=== PATIENT | female | born 1955 | race Caucasian/White ===

== ENCOUNTER 2016-08-29 13:18 | Inpatient (IN) | payer MEDICAID, OTHER ==
[~2016-08-29] VITALS: Ht 175.3 cm; Wt 72.2 kg
[~2016-08-29 13:18] MED LIST: ADV250 IH; BISO5TAB26 PO; CALC-590 PO; CLON2 PO; DIPH-654 PO; FAMO-136 PO; FLUD.1 PO; FLUO40CA7 PO; FLUR30CA13 PO; GEMF600T3 PO; HYDR-4031 PO; LEVAHFA IH; MOME17N NS; MULT1TAB70 PO; SUMA50TA PO; TIOT185 IH
[2016-08-29] MEDS ORDERED: [UNRECOGNIZED DRUG - OTHER] PO (13:36)
[2016-08-29] MEDS ORDERED: RISP4 PO (13:36)
[2016-08-29] MEDS ORDERED: FERR-89 PO (13:36)
[2016-08-29] MEDS ORDERED: OXYB5XL PO (13:36)
[2016-08-29] MEDS ORDERED: MOME13HF2 IH (13:36)
[2016-08-29] MEDS ORDERED: TRAZ150 PO (13:36)
[2016-08-29] MEDS ORDERED: PANTOPRAZOLE SODIUM 80 MG in SODIUM CHLORIDE 0.9% 50 ML IV ONE (13:45)
[2016-08-29 14:06] LABS: ABG BASE EXCESS -4.1 mmol/L (-2.0-3.0); ABG HCO3 20.8 mmol/L (22.0-26.0); ABG OXYHEMOGLOBIN 89.9 % (94.0-100.0); ABG PCO2 50 mmHg (35-45); ALLEN TEST, BLOOD GAS Positive; TEMPERATURE, FAHRENHEIT, BG 98.6 FAHREN (96.0-98.6)
[2016-08-29] MEDS: PANTOPRAZOLE SODIUM 80 MG in SODIUM CHLORIDE 0.9% 500 ML IV SCH ×2 (14:08→23:45)
[2016-08-29 14:25] LABS: BASOPHILS # (AUTO) 0.01 K/uL (0.00-0.20); BASOPHILS % (AUTO) 0.1 % (0.0-2.0); EOSINOPHILS # (AUTO) 0.01 K/uL (0.00-0.70); EOSINOPHILS % (AUTO) 0.05 % (1.0-6.0); HEMATOCRIT 33.4 % (36-46); HEMOGLOBIN 11.4 g/dL (12.0-16.0); LYMPHOCYTES # (AUTO) 0.5 K/uL (1.0-4.8); LYMPHOCYTES % (AUTO) 5.2 % (22.0-44.0); MEAN CORPUSCULAR HGB CONC 34.1 G/dL (31.0-37.0); MEAN CORPUSCULAR VOLUME 91 fL (80-100); MONOCYTES # (AUTO) 0.3 K/uL (0.1-1.0); NEUTROPHILS # (AUTO) 9.1 K/uL (1.8-7.7); NEUTROPHILS % (AUTO) 91.7 % (40.0-70.0); PLATELET COUNT (AUTO) 243 K/uL (150-450); RED BLOOD CELL COUNT(AUTO) 3.66 MIL/uL (4.00-5.20); RED CELL DISTRIBUTION WIDTH 12.6 % (11.5-14.5); WHITE BLOOD COUNT (AUTO) 9.9 K/uL (4.5-11.0)
[2016-08-29] MEDS ORDERED: SODIUM CHLORIDE 0.9% 1,000 ML IV ONE (14:30)
[2016-08-29 14:37] LABS: INR 1.8 (0.9-1.1); PROTHROMBIN TIME 18.9 SEC (9.4-11.6)
[2016-08-29 14:44] LABS: APPEARANCE,URINE CLOUDY (CLEAR); GLUCOSE, URINE (UA) NEGATIVE (NEGATIVE); KETONES,URINE 15 mg/dL (NEGATIVE); LEUKOCYTE ESTERASE ,URINE NEGATIVE (NEGATIVE); OCCULT BLOOD,URINE TRACE (NEGATIVE); PH,URINE 7.5 (5.0-8.0); PROTEIN,URINE NEGATIVE (NEGATIVE)
[2016-08-29 14:44] LABS: CALCIUM, TOTAL 9.5 mg/dL (8.8-10.5); CREATININE 1.29 mg/dL (0.60-1.30); POTASSIUM 4.8 mmol/L (3.5-5.1)
[2016-08-29 14:45] LABS: ADD UA MICROSCOPIC YES
[2016-08-29 14:49] LABS: AMORPHOUS SEDIMENT,UR Moderate /LPF (None Seen); RBC,URINE 0-2 /HPF (0-2); WBC,URINE 0-2 /HPF (0-5)
[2016-08-29] MEDS ORDERED: TOBRAMYCIN SULFATE 80 MG in DEXTROSE 5%-WATER 50 ML IV ONE (15:00)
[2016-08-29] MEDS ORDERED: CEFTAROLINE 600 MG/D5W 250 ML IV ONE (15:00)
[2016-08-29 15:09] LABS: ALBUMIN 2.9 g/dL (3.4-5.0); BILIRUBIN,TOTAL 0.6 mg/dL (0.1-1.0); CREATINE KINASE MB 20.8 ng/mL (0-5)
[2016-08-29] MEDS ORDERED: SODIUM BICARBONATE 150 MEQ in SODIUM CHLORIDE 0.9% 1,000 ML IV ONE (15:45)
[2016-08-29] MEDS ORDERED: TEMA15CA PO (15:50)
[2016-08-29] MEDS ORDERED: LAMO100 PO (15:50)
[2016-08-29] MEDS ORDERED: BREX3TAB PO (15:50)
[2016-08-29] MEDS ORDERED: DIAZ10 PO (15:50)
[2016-08-29] MEDS ORDERED: DSS100 PO (15:50)
[2016-08-29] MEDS ORDERED: VENL-68 PO (15:50)
[2016-08-29] MEDS ORDERED: HYDR-3971 PO (15:52)
[2016-08-29 15:54] LABS: ABG BASE EXCESS -5.8 mmol/L (-2.0-3.0); ABG HCO3 19.9 mmol/L (22.0-26.0); ABG OXYHEMOGLOBIN 93.8 % (94.0-100.0); ABG PCO2 42 mmHg (35-45); ALLEN TEST, BLOOD GAS Positive; TEMPERATURE, FAHRENHEIT, BG 94.2 FAHREN (96.0-98.6)
[2016-08-29] MEDS ORDERED: SODIUM CHLORIDE 0.9% 500 ML IV ONE (16:23)
[2016-08-29 16:30] VITALS: BP 119/72
[2016-08-29 16:45] VITALS: BP 128/76
[2016-08-29] MEDS ORDERED: LORazepam 2 MG/ML VIAL IVP ONE (16:45)
[2016-08-29] MEDS ORDERED: ROCURONIUM BROMIDE 10 MG/ML 5 ML VIAL IVP ONE ×2 (16:45→17:15)
[2016-08-29 17:00] VITALS: BP 118/73
[2016-08-29 17:30] VITALS: BP 123/74
[2016-08-29] MEDS ORDERED: BARIUM SULFATE 0.1% SUSPENSION 450 ML BOTTLE ONE (18:31)
[2016-08-29] MEDS: CefTRIAXone 1 GM/DEXTROSE 50 ML IV SCH (18:38)
[2016-08-29] MEDS ORDERED: MAGNESIUM HYDROXIDE SUSPENSION 30 ML UDCUP PO PRN (19:00)
[2016-08-29] MEDS ORDERED: BISACODYL 10 MG RECTAL RECTAL SUPPOSITORY PR PRN (19:00)
[2016-08-29] MEDS ORDERED: ZOLPIDEM TARTRATE 5 MG TABLET PO PRN (19:00)
[2016-08-29] MEDS ORDERED: HYDROCODONE/ACETAMINOPHEN 5-325 MG TABLET PO PRN (19:00)
[2016-08-29] MEDS ORDERED: ACETAMINOPHEN 325 MG TABLET PO PRN (19:00)
[2016-08-29] MEDS ORDERED: ONDANSETRON HCL 4 MG/2 ML VIAL IVP PRN (19:00)
[2016-08-29] MEDS: DOXYCYCLINE 100 MG in DEXTROSE 5%-WATER 100 ML IV SCH (19:19)
[2016-08-29 20:00] VITALS: BP 140/73
[2016-08-29] MEDS ORDERED: 0.9% SODIUM CHLORIDE 10 ML SYRINGE IVP PRN (20:00)
[2016-08-29] MEDS: OCTREOTIDE ACETATE 500 MCG in DEXTROSE 5%-WATER 97.5 ML IV SCH (20:52)
[2016-08-29] MEDS: DOCUSATE SODIUM 100 MG CAPSULE PO SCH (21:00)
[2016-08-29 22:03] LABS: ABG A-A DIFF O2 641.2 mmHg (10-20.0); ABG BASE EXCESS -0.7 mmol/L (-2.0-3.0); ABG HCO3 23.7 mmol/L (22.0-26.0); ABG OXYHEMOGLOBIN 84.5 % (94.0-100.0); ABG PCO2 36 mmHg (35-45); ABG PH 7.438 (7.35-7.450); TEMPERATURE, FAHRENHEIT, BG 93.2 FAHREN (96.0-98.6)
[2016-08-29 22:05] LABS: ALLEN TEST, BLOOD GAS POSITIVE
[2016-08-30] VITALS: BP 165/88
[2016-08-30] MEDS: PROPOFOL 1000 MG/ISO-OSM 100 ML IV PRN ×2 (01:32→13:34)
[2016-08-30] MEDS: PANTOPRAZOLE SODIUM 80 MG in SODIUM CHLORIDE 0.9% 500 ML IV SCH ×5 (03:58→22:57)
[2016-08-30 04:00] VITALS: BP 158/73
[2016-08-30 04:30] LABS: ABG A-A DIFF O2 631.1 mmHg (10-20.0); ABG BASE EXCESS -2.5 mmol/L (-2.0-3.0); ABG HCO3 22.7 mmol/L (22.0-26.0); ABG OXYHEMOGLOBIN 93.8 % (94.0-100.0); ABG PCO2 31 mmHg (35-45); ABG PH 7.455 (7.35-7.450); TEMPERATURE, FAHRENHEIT, BG 90.8 FAHREN (96.0-98.6)
[2016-08-30 04:36] LABS: ALLEN TEST, BLOOD GAS POSITIVE
[2016-08-30] MEDS: DOXYCYCLINE 100 MG in DEXTROSE 5%-WATER 100 ML IV SCH ×2 (05:34→18:35)
[2016-08-30] MEDS: OCTREOTIDE ACETATE 500 MCG in DEXTROSE 5%-WATER 97.5 ML IV SCH (06:03)
[2016-08-30 06:52] LABS: GLUCOSE,POINT OF CARE 242 MG/DL (70-110)
[2016-08-30 07:06] LABS: HEMATOCRIT 36.8 % (36-46); HEMOGLOBIN 12.2 g/dL (12.0-16.0); MEAN CORPUSCULAR HEMOGLOBIN 30.4 pg (26.0-34.0); MEAN CORPUSCULAR VOLUME 92 fL (80-100); PLATELET COUNT (AUTO) 216 K/uL (150-450)
[2016-08-30 07:23] LABS: ALANINE AMINOTRANSFERASE 202 U/L (12-78); ANION GAP 11 mmol/L (8-16); ASPARTATE AMINOTRANSFERASE 215 U/L (15-37); BILIRUBIN,TOTAL 0.7 mg/dL (0.1-1.0); CALCIUM, TOTAL 7.5 mg/dL (8.8-10.5); CARBON DIOXIDE 29 mmol/L (22-29); CHLORIDE 94 mmol/L (98-107); CREATININE 0.88 mg/dL (0.60-1.30); GLOMERULAR FILTR. RATE CALC > 60 mL/min (>60); INR 1.5 (0.9-1.1); LACTATE DEHYDROGENASE 494 U/L (81-234); PHOSPHORUS 2.4 mg/dL (2.5-4.9); POTASSIUM 3.2 mmol/L (3.5-5.1); PROTHROMBIN TIME 15.8 SEC (9.4-11.6); SODIUM SERUM 134 mmol/L (136-145); TOTAL PROTEIN, SERUM 6.3 g/dL (6.4-8.2); UREA NITROGEN, BLOOD 24 mg/dL (7-18)
[2016-08-30 08:00] VITALS: BP 173/66
[2016-08-30] MEDS: OXYBUTYNIN CHLORIDE 5 MG ER TABLET PO SCH (09:00)
[2016-08-30] MEDS ORDERED: PANTOPRAZOLE SODIUM 40 MG DR TABLET PO SCH (09:00)
[2016-08-30] MEDS: DOCUSATE SODIUM 100 MG CAPSULE PO SCH ×2 (09:00→21:00)
[2016-08-30] MEDS ORDERED: POTASSIUM PHOS,M-BASIC-D-BASIC 20 MMOL in DEXTROSE 5%-WATER 150 ML IV ONE (10:00)
[2016-08-30 10:02] LABS: BAND NEUTROPHILS % (MANUAL) 18 % (1-5); LYMPHOCYTES % (MANUAL) 2 % (22-44); TOTAL CELLS COUNTED 100
[2016-08-30 11:10] LABS: ABG A-A DIFF O2 589.5 mmHg (10-20.0); ABG BASE EXCESS -2.6 mmol/L (-2.0-3.0); ABG HCO3 23.1 mmol/L (22.0-26.0); ABG OXYHEMOGLOBIN 97.5 % (94.0-100.0); ABG PCO2 29 mmHg (35-45); ABG PH 7.474 (7.35-7.450); TEMPERATURE, FAHRENHEIT, BG 94.6 FAHREN (96.0-98.6)
[2016-08-30] MEDS ORDERED: KDUR20 PO (11:37)
[2016-08-30 12:00] VITALS: BP 184/95
[2016-08-30] MEDS ORDERED: PROPOFOL 1% 20 ML VIAL IVP ONE (12:00)
[2016-08-30] MEDS ORDERED: SODIUM CHLORIDE 0.9% 1,000 ML IV ONE (12:40)
[2016-08-30 13:22] LABS: ALANINE AMINOTRANSFERASE 188 U/L (12-78); ALBUMIN 2.9 g/dL (3.4-5.0); ANION GAP 13 mmol/L (8-16); ASPARTATE AMINOTRANSFERASE 164 U/L (15-37); BILIRUBIN,TOTAL 0.6 mg/dL (0.1-1.0); CALCIUM, TOTAL 7.3 mg/dL (8.8-10.5); CARBON DIOXIDE 27 mmol/L (22-29); CHLORIDE 95 mmol/L (98-107); CREATININE 0.81 mg/dL (0.60-1.30); GLOMERULAR FILTR. RATE CALC > 60 mL/min (>60); PHOSPHORUS 3.7 mg/dL (2.5-4.9); POTASSIUM 3.1 mmol/L (3.5-5.1); SODIUM SERUM 135 mmol/L (136-145); TOTAL PROTEIN, SERUM 6.5 g/dL (6.4-8.2); UREA NITROGEN, BLOOD 19 mg/dL (7-18)
[2016-08-30] MEDS ORDERED: PEG 3350/NA SULF,BICARB,CL/KCL 4000 ML SOLUTION PO ONE (13:45)
[2016-08-30] MEDS ORDERED: MAGNESIUM SULFATE 4 GM/WATER 100 ML IV PRN (15:30)
[2016-08-30] MEDS ORDERED: POTASSIUM CHLORIDE 10% 40 MEQ/30 ML LIQUID UDCUP NG PRN (15:30)
[2016-08-30] MEDS ORDERED: MAGNESIUM GLUCONATE 1 GM/5 ML LIQUID 22 ML UDCUP NG PRN (15:30)
[2016-08-30] MEDS: POTASSIUM CHL 10 MEQ/WATER 50 ML IV PRN ×3 (15:50→17:14)
[2016-08-30 16:00] VITALS: BP 125/79
[2016-08-30] MEDS: MAGNESIUM SULFATE 2 GM in DEXTROSE 5%-WATER 50 ML IV PRN (16:49)
[2016-08-30 17:22] LABS: ABG A-A DIFF O2 455.1 mmHg (10-20.0); ABG BASE EXCESS -0.6 mmol/L (-2.0-3.0); ABG OXYHEMOGLOBIN 95.6 % (94.0-100.0); ABG PCO2 36 mmHg (35-45); ABG PH 7.434 (7.35-7.450)
[2016-08-30] MEDS: CefTRIAXone 1 GM/DEXTROSE 50 ML IV SCH (17:49)
[2016-08-30 19:10] LABS: ALANINE AMINOTRANSFERASE 178 U/L (12-78); ALBUMIN 2.7 g/dL (3.4-5.0); ANION GAP 10 mmol/L (8-16); ASPARTATE AMINOTRANSFERASE 129 U/L (15-37); BILIRUBIN,TOTAL 0.4 mg/dL (0.1-1.0); CALCIUM, TOTAL 7.2 mg/dL (8.8-10.5); CARBON DIOXIDE 27 mmol/L (22-29); CHLORIDE 97 mmol/L (98-107); CREATININE 0.66 mg/dL (0.60-1.30); GLOMERULAR FILTR. RATE CALC > 60 mL/min (>60); PHOSPHORUS 2.7 mg/dL (2.5-4.9); POTASSIUM 3.5 mmol/L (3.5-5.1); SODIUM SERUM 134 mmol/L (136-145); UREA NITROGEN, BLOOD 16 mg/dL (7-18)
[2016-08-30 20:00] VITALS: BP 149/80
[2016-08-30 23:00] LABS: TEMPERATURE, FAHRENHEIT, BG 98.3 FAHREN (96.0-98.6)
[2016-08-30 23:37] LABS: ABG A-A DIFF O2 423.1 mmHg (10-20.0); ABG BASE EXCESS -1.7 mmol/L (-2.0-3.0); ABG OXYHEMOGLOBIN 97.4 % (94.0-100.0); ABG PCO2 26 mmHg (35-45); ABG PH 7.525 (7.35-7.450)
[2016-08-30 23:51] LABS: ALLEN TEST, BLOOD GAS Positive
[2016-08-31] VITALS: BP 108/66
[2016-08-31 04:00] VITALS: BP 100/58
[2016-08-31 05:27] LABS: BASOPHILS # (AUTO) 0.02 K/uL (0.00-0.20); BASOPHILS % (AUTO) 0.2 % (0.0-2.0); EOSINOPHILS # (AUTO) 0.01 K/uL (0.00-0.70); EOSINOPHILS % (AUTO) 0.12 % (1.0-6.0); HEMATOCRIT 33.8 % (36-46); HEMOGLOBIN 11.6 g/dL (12.0-16.0); INR 1.3 (0.9-1.1); LYMPHOCYTES # (AUTO) 0.6 K/uL (1.0-4.8); LYMPHOCYTES % (AUTO) 6.3 % (22.0-44.0); MEAN CORPUSCULAR HEMOGLOBIN 31.2 pg (26.0-34.0); MEAN CORPUSCULAR HGB CONC 34.3 G/dL (31.0-37.0); MEAN CORPUSCULAR VOLUME 91 fL (80-100); MONOCYTES # (AUTO) 0.1 K/uL (0.1-1.0); MONOCYTES % (AUTO) 0.9 % (2.0-9.0); NEUTROPHILS # (AUTO) 9.5 K/uL (1.8-7.7); PLATELET COUNT (AUTO) 214 K/uL (150-450); PROTHROMBIN TIME 13.5 SEC (9.4-11.6); RED BLOOD CELL COUNT(AUTO) 3.71 MIL/uL (4.00-5.20); RED CELL DISTRIBUTION WIDTH 13.1 % (11.5-14.5); WHITE BLOOD COUNT (AUTO) 10.3 K/uL (4.5-11.0)
[2016-08-31] MEDS: DOXYCYCLINE 100 MG in DEXTROSE 5%-WATER 100 ML IV SCH ×2 (05:50→17:28)
[2016-08-31 06:01] LABS: ALANINE AMINOTRANSFERASE 137 U/L (12-78); ALBUMIN 2.4 g/dL (3.4-5.0); ANION GAP 12 mmol/L (8-16); ASPARTATE AMINOTRANSFERASE 95 U/L (15-37); BILIRUBIN,TOTAL 0.4 mg/dL (0.1-1.0); CALCIUM, TOTAL 6.7 mg/dL (8.8-10.5); CARBON DIOXIDE 25 mmol/L (22-29); CHLORIDE 99 mmol/L (98-107); CREATININE 0.78 mg/dL (0.60-1.30); GLOMERULAR FILTR. RATE CALC > 60 mL/min (>60); PHOSPHORUS 2.4 mg/dL (2.5-4.9); SODIUM SERUM 136 mmol/L (136-145); TOTAL PROTEIN, SERUM 5.5 g/dL (6.4-8.2); UREA NITROGEN, BLOOD 18 mg/dL (7-18)
[2016-08-31 06:28] LABS: POTASSIUM 2.7 mmol/L (3.5-5.1)
[2016-08-31] MEDS: POTASSIUM CHL 10 MEQ/WATER 50 ML IV PRN ×9 (06:41→22:36)
[2016-08-31 06:42] LABS: NEUTROPHILS % (AUTO) 92.5 % (40.0-70.0)
[2016-08-31 08:00] VITALS: BP 112/67
[2016-08-31] MEDS: DOCUSATE SODIUM 100 MG CAPSULE PO SCH ×2 (09:00→20:22)
[2016-08-31] MEDS: OXYBUTYNIN CHLORIDE 5 MG ER TABLET PO SCH (09:00)
[2016-08-31] MEDS: PROPOFOL 1000 MG/ISO-OSM 100 ML IV PRN ×2 (09:08→17:28)
[2016-08-31] MEDS: PANTOPRAZOLE SODIUM 80 MG in SODIUM CHLORIDE 0.9% 500 ML IV SCH ×2 (09:11→17:27)
[2016-08-31 12:00] VITALS: BP 112/64
[2016-08-31] MEDS ORDERED: SODIUM CHLORIDE 0.9% 250 ML IV ONE (17:27)
[2016-08-31] MEDS: CefTRIAXone 1 GM/DEXTROSE 50 ML IV SCH (17:28)
[2016-08-31 18:00] VITALS: BP 112/64
[2016-08-31 20:00] VITALS: BP 124/73
[2016-08-31 20:27] LABS: GLUCOSE,POINT OF CARE 112 MG/DL (70-110)
[2016-09-01] VITALS: BP 136/84
[2016-09-01] MEDS: POTASSIUM CHL 10 MEQ/WATER 50 ML IV PRN ×15 (01:56→23:50)
[2016-09-01 04:00] VITALS: BP 146/77
[2016-09-01] MEDS: PANTOPRAZOLE SODIUM 80 MG in SODIUM CHLORIDE 0.9% 500 ML IV SCH ×2 (05:14→15:02)
[2016-09-01 05:25] LABS: INR 1.1 (0.9-1.1); PROTHROMBIN TIME 11.7 SEC (9.4-11.6)
[2016-09-01] MEDS: DOXYCYCLINE 100 MG in DEXTROSE 5%-WATER 100 ML IV SCH ×2 (05:37→20:25)
[2016-09-01 05:46] LABS: ALANINE AMINOTRANSFERASE 100 U/L (12-78); ALBUMIN 2.3 g/dL (3.4-5.0); ANION GAP 12 mmol/L (8-16); ASPARTATE AMINOTRANSFERASE 80 U/L (15-37); BILIRUBIN,TOTAL 0.4 mg/dL (0.1-1.0); CARBON DIOXIDE 22 mmol/L (22-29); CHLORIDE 105 mmol/L (98-107); POTASSIUM 3.4 mmol/L (3.5-5.1); SODIUM SERUM 139 mmol/L (136-145); TOTAL PROTEIN, SERUM 5.5 g/dL (6.4-8.2); UREA NITROGEN, BLOOD 11 mg/dL (7-18)
[2016-09-01 05:57] LABS: CREATININE 0.67 mg/dL (0.60-1.30); GLOMERULAR FILTR. RATE CALC > 60 mL/min (>60)
[2016-09-01 06:08] LABS: EOSINOPHILS % (AUTO) 0.3 % (1.0-6.0); HEMATOCRIT 35.8 % (36-46); HEMOGLOBIN 11.8 g/dL (12.0-16.0); LYMPHOCYTES # (AUTO) 1.3 K/uL (1.0-4.8); LYMPHOCYTES % (AUTO) 9.1 % (22.0-44.0); MEAN CORPUSCULAR HEMOGLOBIN 30.4 pg (26.0-34.0); MEAN CORPUSCULAR VOLUME 92 fL (80-100); MONOCYTES # (AUTO) 0.1 K/uL (0.1-1.0); MONOCYTES % (AUTO) 0.9 % (2.0-9.0); NEUTROPHILS # (AUTO) 12.5 K/uL (1.8-7.7); NEUTROPHILS % (AUTO) 89.7 % (40.0-70.0); PLATELET COUNT (AUTO) 213 K/uL (150-450); RED BLOOD CELL COUNT(AUTO) 3.89 MIL/uL (4.00-5.20); RED CELL DISTRIBUTION WIDTH 13.5 % (11.5-14.5); WHITE BLOOD COUNT (AUTO) 13.9 K/uL (4.5-11.0)
[2016-09-01 07:31] LABS: RBC MORPHOLOGY COMMENT NORMAL RBC MORPH
[2016-09-01] MEDS ORDERED: SODIUM CHLORIDE 0.9% 1,000 ML IV SCH (07:45)
[2016-09-01] MEDS: OXYBUTYNIN CHLORIDE 5 MG ER TABLET PO SCH (07:55)
[2016-09-01] MEDS: DOCUSATE SODIUM 100 MG CAPSULE PO SCH ×2 (07:55→21:00)
[2016-09-01 08:00] VITALS: BP 142/77
[2016-09-01] MEDS: ACETAMINOPHEN 650 MG/ISO-OSM 65 ML IV PRN ×2 (10:46→21:42)
[2016-09-01 12:00] VITALS: BP 146/76
[2016-09-01] MEDS ORDERED: MAGNESIUM SULFATE 2 GM in DEXTROSE 5%-WATER 50 ML IV ONE (12:15)
[2016-09-01 12:42] LABS: GLUCOSE, URINE (UA) NEGATIVE (NEGATIVE); KETONES,URINE TRACE mg/dL (NEGATIVE); LEUKOCYTE ESTERASE ,URINE NEGATIVE (NEGATIVE); OCCULT BLOOD,URINE MODERATE (NEGATIVE); PROTEIN,URINE NEGATIVE (NEGATIVE)
[2016-09-01 13:02] LABS: APPEARANCE,URINE HAZY (CLEAR)
[2016-09-01 13:03] LABS: ADD UA MICROSCOPIC YES
[2016-09-01 13:04] LABS: RBC,URINE 51-100 /HPF (0-2); WBC,URINE 0-2 /HPF (0-5)
[2016-09-01 13:06] LABS: HYALINE CASTS, URINE 0-2 /LPF (None Seen); SQUAMOUS EPITHELIAL CELL,UR Rare /LPF (None Seen)
[2016-09-01] MEDS ORDERED: POTASSIUM CHLORIDE 40 MEQ in SODIUM CHLORIDE 0.9% 1,000 ML IV ONE (15:00)
[2016-09-01 16:00] VITALS: BP 165/81
[2016-09-01] MEDS: CefTRIAXone 1 GM/DEXTROSE 50 ML IV SCH (18:40)
[2016-09-01] MEDS ORDERED: SODIUM PHOS/SODIUM BIPHOS 133 ML ENEMA PR ONE (19:55)
[2016-09-01] MEDS ORDERED: SODIUM CHLORIDE 0.9% 500 ML IV ONE (19:56)
[2016-09-01 20:00] VITALS: BP 174/84
[2016-09-01] MEDS: HydrALAZINE HCL 20 MG/ML VIAL IVP PRN (21:29)
[2016-09-01 21:30] LABS: POTASSIUM 3.4 mmol/L (3.5-5.1)
[2016-09-01] MEDS: MORPHINE SULFATE 2 MG/ML SYRINGE IVP PRN (23:05)
[2016-09-02] VITALS: BP 140/75
[2016-09-02] MEDS ORDERED: LABETALOL HCL 5 MG/ML 20 ML VIAL IVP PRN (00:15)
[2016-09-02] MEDS ORDERED: VANCOMYCIN HCL 1 GM/D5% WATER 200 ML IV ONE (00:30)
[2016-09-02] MEDS: VANCOMYCIN HCL 750 MG in DEXTROSE 5%-WATER 150 ML IV SCH ×2 (02:17→15:34)
[2016-09-02] MEDS: MetroNIDAZOLE 500 MG/NACL 100 ML IV SCH ×3 (02:18→17:06)
[2016-09-02] MEDS: PANTOPRAZOLE SODIUM 80 MG in SODIUM CHLORIDE 0.9% 500 ML IV SCH ×3 (02:18→15:02)
[2016-09-02] MEDS ORDERED: SODIUM CHLORIDE 0.9% 250 ML IV ONE (03:14)
[2016-09-02 03:56] LABS: BASOPHILS # (AUTO) 0.04 K/uL (0.00-0.20); BASOPHILS % (AUTO) 0.3 % (0.0-2.0); EOSINOPHILS # (AUTO) 0.03 K/uL (0.00-0.70); HEMATOCRIT 32.6 % (36-46); HEMOGLOBIN 11.3 g/dL (12.0-16.0); LYMPHOCYTES # (AUTO) 1.5 K/uL (1.0-4.8); LYMPHOCYTES % (AUTO) 10.8 % (22.0-44.0); MEAN CORPUSCULAR HEMOGLOBIN 31.2 pg (26.0-34.0); MEAN CORPUSCULAR HGB CONC 34.5 G/dL (31.0-37.0); MEAN CORPUSCULAR VOLUME 90 fL (80-100); MONOCYTES # (AUTO) 0.7 K/uL (0.1-1.0); MONOCYTES % (AUTO) 4.8 % (2.0-9.0); NEUTROPHILS # (AUTO) 11.6 K/uL (1.8-7.7); NEUTROPHILS % (AUTO) 83.9 % (40.0-70.0); PLATELET COUNT (AUTO) 160 K/uL (150-450); RED CELL DISTRIBUTION WIDTH 13.5 % (11.5-14.5); WHITE BLOOD COUNT (AUTO) 13.9 K/uL (4.5-11.0)
[2016-09-02 04:00] VITALS: BP 146/75
[2016-09-02 04:08] LABS: ALANINE AMINOTRANSFERASE 71 U/L (12-78); ANION GAP 12 mmol/L (8-16); ASPARTATE AMINOTRANSFERASE 71 U/L (15-37); BILIRUBIN,TOTAL 0.4 mg/dL (0.1-1.0); CALCIUM, TOTAL 6.8 mg/dL (8.8-10.5); CARBON DIOXIDE 20 mmol/L (22-29); CHLORIDE 109 mmol/L (98-107); CREATININE 0.53 mg/dL (0.60-1.30); GLOMERULAR FILTR. RATE CALC > 60 mL/min (>60); SODIUM SERUM 141 mmol/L (136-145); TOTAL PROTEIN, SERUM 5.1 g/dL (6.4-8.2); UREA NITROGEN, BLOOD 7 mg/dL (7-18)
[2016-09-02 04:12] LABS: POTASSIUM 2.8 mmol/L (3.5-5.1)
[2016-09-02] MEDS: POTASSIUM CHL 10 MEQ/WATER 50 ML IV PRN ×11 (04:15→22:00)
[2016-09-02] MEDS: MAGNESIUM SULFATE 2 GM in DEXTROSE 5%-WATER 50 ML IV PRN (05:23)
[2016-09-02 08:00] VITALS: BP 178/87
[2016-09-02] MEDS: HydrALAZINE HCL 20 MG/ML VIAL IVP PRN (09:43)
[2016-09-02] MEDS: DOCUSATE SODIUM 100 MG CAPSULE PO SCH ×2 (09:43→21:21)
[2016-09-02] MEDS: OXYBUTYNIN CHLORIDE 5 MG ER TABLET PO SCH (09:43)
[2016-09-02 12:00] VITALS: BP 135/79
[2016-09-02 16:06] VITALS: BP 130/78
[2016-09-02] MEDS: POTASSIUM CHLORIDE 40 MEQ in SODIUM CHLORIDE 0.9% 1,000 ML IV SCH (17:07)
[2016-09-02] MEDS: CefTRIAXone 1 GM/DEXTROSE 50 ML IV SCH (18:13)
[2016-09-02 20:00] VITALS: BP 126/77
[2016-09-03] VITALS (8 sets, daily range): BP systolic 119–152; BP diastolic 68–84
[2016-09-03] MEDS: VANCOMYCIN HCL 750 MG in DEXTROSE 5%-WATER 150 ML IV SCH (00:25)
[2016-09-03] MEDS: POTASSIUM CHL 10 MEQ/WATER 50 ML IV PRN ×2 (02:36)
[2016-09-03] MEDS: MetroNIDAZOLE 500 MG/NACL 100 ML IV SCH ×3 (02:46→18:22)
[2016-09-03] MEDS: POTASSIUM CHLORIDE 40 MEQ in SODIUM CHLORIDE 0.9% 1,000 ML IV SCH ×3 (03:20→23:15)
[2016-09-03] MEDS: PANTOPRAZOLE SODIUM 80 MG in SODIUM CHLORIDE 0.9% 500 ML IV SCH ×3 (05:00→21:48)
[2016-09-03 06:14] LABS: ANION GAP 11 mmol/L (8-16); CALCIUM, TOTAL 6.9 mg/dL (8.8-10.5); CARBON DIOXIDE 18 mmol/L (22-29); CHLORIDE 112 mmol/L (98-107); CREATININE 0.46 mg/dL (0.60-1.30); GLOMERULAR FILTR. RATE CALC > 60 mL/min (>60); SODIUM SERUM 141 mmol/L (136-145); UREA NITROGEN, BLOOD 10 mg/dL (7-18)
[2016-09-03] MEDS: OXYBUTYNIN CHLORIDE 5 MG ER TABLET PO SCH (09:01)
[2016-09-03] MEDS: VANCOMYCIN HCL 1 GM/D5% WATER 200 ML IV SCH ×3 (09:01→23:22)
[2016-09-03] MEDS: DOCUSATE SODIUM 100 MG CAPSULE PO SCH ×2 (09:02→20:36)
[2016-09-03 10:48] LABS: ABG A-A DIFF O2 130.5 mmHg (10-20.0); ABG BASE EXCESS -8.1 mmol/L (-2.0-3.0); ABG HCO3 19.6 mmol/L (22.0-26.0); ABG OXYHEMOGLOBIN 96.4 % (94.0-100.0); ABG PCO2 23 mmHg (35-45); ABG PH 7.457 (7.35-7.450); TEMPERATURE, FAHRENHEIT, BG 96.5 FAHREN (96.0-98.6)
[2016-09-03 10:58] LABS: ALLEN TEST, BLOOD GAS Positive
[2016-09-03] MEDS ORDERED: SODIUM CHLORIDE 0.9% 250 ML IV ONE (15:32)
[2016-09-03] MEDS ORDERED: FUROSEMIDE 40 MG/4 ML VIAL IVP ONE (18:00)
[2016-09-03] MEDS: CefTRIAXone 1 GM/DEXTROSE 50 ML IV SCH (18:22)
[2016-09-03] MEDS: MORPHINE SULFATE 2 MG/ML SYRINGE IVP PRN (18:22)
[2016-09-03] MEDS: BISACODYL 10 MG RECTAL RECTAL SUPPOSITORY PR SCH (20:36)
[2016-09-04] VITALS: BP 137/78
[2016-09-04] MEDS: MetroNIDAZOLE 500 MG/NACL 100 ML IV SCH ×3 (02:09→17:05)
[2016-09-04 04:00] VITALS: BP 141/96
[2016-09-04 04:57] LABS: ANION GAP 13 mmol/L (8-16); CALCIUM, TOTAL 6.9 mg/dL (8.8-10.5); CARBON DIOXIDE 17 mmol/L (22-29); CHLORIDE 115 mmol/L (98-107); CREATININE 0.51 mg/dL (0.60-1.30); GLOMERULAR FILTR. RATE CALC > 60 mL/min (>60); PHOSPHORUS 1.6 mg/dL (2.5-4.9); POTASSIUM 3.5 mmol/L (3.5-5.1); SODIUM SERUM 145 mmol/L (136-145); UREA NITROGEN, BLOOD 8 mg/dL (7-18)
[2016-09-04] MEDS ORDERED: SODIUM CHLORIDE 0.9% 250 ML IV ONE (07:25)
[2016-09-04 08:00] VITALS: BP 154/84
[2016-09-04] MEDS: BISACODYL 10 MG RECTAL RECTAL SUPPOSITORY PR SCH ×2 (08:29→21:50)
[2016-09-04] MEDS: DOCUSATE SODIUM 100 MG CAPSULE PO SCH ×2 (08:29→21:50)
[2016-09-04] MEDS ORDERED: MAGNESIUM SULFATE 3 GM in DEXTROSE 5%-WATER 100 ML IV ONE (08:30)
[2016-09-04] MEDS: VANCOMYCIN HCL 1 GM/D5% WATER 200 ML IV SCH ×2 (08:30→15:56)
[2016-09-04] MEDS: PANTOPRAZOLE SODIUM 80 MG in SODIUM CHLORIDE 0.9% 500 ML IV SCH ×2 (08:30→18:13)
[2016-09-04] MEDS: LABETALOL HCL 5 MG/ML 20 ML VIAL IVP PRN (08:30)
[2016-09-04] MEDS: POTASSIUM CHLORIDE 40 MEQ in SODIUM CHLORIDE 0.9% 1,000 ML IV SCH ×3 (08:31→21:51)
[2016-09-04] MEDS: POTASSIUM PHOS/SODIUM PHOS MIXTURE 1 POWDER PACKET PO SCH ×2 (08:52→21:50)
[2016-09-04] MEDS ORDERED: *CLINICAL-TOTAL PARENTERAL NUTRITION DOSING CLINICAL ONE ×2 (10:30)
[2016-09-04 10:59] LABS: INR 1.8 (0.9-1.1); PROTHROMBIN TIME 19.1 SEC (9.4-11.6)
[2016-09-04 11:23] LABS: GLUCOSE,POINT OF CARE 124 MG/DL (70-110)
[2016-09-04 12:00] VITALS: BP 152/62
[2016-09-04 15:02] LABS: GLUCOSE,POINT OF CARE 109 MG/DL (70-110)
[2016-09-04 16:00] VITALS: BP 146/80
[2016-09-04] MEDS: CefTRIAXone 1 GM/DEXTROSE 50 ML IV SCH (17:04)
[2016-09-04 18:27] LABS: GLUCOSE,POINT OF CARE 132 MG/DL (70-110)
[2016-09-04 20:00] VITALS: BP 142/94
[2016-09-04] MEDS ORDERED: [UNRECOGNIZED DRUG - OTHER] IV SCH ×9 (22:00)
[2016-09-04] MEDS ORDERED: TPN IV SCH ×9 (22:00)
[2016-09-04] MEDS ORDERED: POTASSIUM PHOS M BASIC D BASIC IV SCH ×9 (22:00)
[2016-09-04] MEDS ORDERED: SODIUM ACETATE IV SCH ×9 (22:00)
[2016-09-04] MEDS ORDERED: DEXTROSE 50%-WATER 25 GM/50 ML SYRINGE IVP PRN (22:00)
[2016-09-05] VITALS: BP 154/86
[2016-09-05] MEDS: VANCOMYCIN HCL 1 GM/D5% WATER 200 ML IV SCH ×2 (00:16→07:52)
[2016-09-05] MEDS: INSULIN REGULAR, HUMAN 100 UNITS/ML SQ PRN ×6 (00:26→22:39)
[2016-09-05] MEDS: MetroNIDAZOLE 500 MG/NACL 100 ML IV SCH ×3 (02:41→18:02)
[2016-09-05 04:00] VITALS: BP 140/76
[2016-09-05] MEDS: PANTOPRAZOLE SODIUM 80 MG in SODIUM CHLORIDE 0.9% 500 ML IV SCH ×3 (04:08→22:51)
[2016-09-05 05:51] LABS: INR 1.7 (0.9-1.1); PROTHROMBIN TIME 18.1 SEC (9.4-11.6)
[2016-09-05 06:18] LABS: BASOPHILS % (AUTO) 0.2 % (0.0-2.0); EOSINOPHILS % (AUTO) 1.1 % (1.0-6.0); HEMATOCRIT 34.1 % (36-46); HEMOGLOBIN 11.2 g/dL (12.0-16.0); LYMPHOCYTES # (AUTO) 1.8 K/uL (1.0-4.8); LYMPHOCYTES % (AUTO) 11.9 % (22.0-44.0); MEAN CORPUSCULAR HEMOGLOBIN 30.4 pg (26.0-34.0); MEAN CORPUSCULAR HGB CONC 32.7 G/dL (31.0-37.0); MEAN CORPUSCULAR VOLUME 93 fL (80-100); MONOCYTES # (AUTO) 1.6 K/uL (0.1-1.0); MONOCYTES % (AUTO) 10.8 % (2.0-9.0); NEUTROPHILS # (AUTO) 11.3 K/uL (1.8-7.7); PLATELET COUNT (AUTO) 123 K/uL (150-450); RED BLOOD CELL COUNT(AUTO) 3.67 MIL/uL (4.00-5.20); RED CELL DISTRIBUTION WIDTH 14.3 % (11.5-14.5); WHITE BLOOD COUNT (AUTO) 14.8 K/uL (4.5-11.0)
[2016-09-05 07:18] LABS: ALANINE AMINOTRANSFERASE 33 U/L (12-78); ALBUMIN 1.9 g/dL (3.4-5.0); ANION GAP 11 mmol/L (8-16); ASPARTATE AMINOTRANSFERASE 51 U/L (15-37); BILIRUBIN,TOTAL 0.4 mg/dL (0.1-1.0); CALCIUM, TOTAL 7.1 mg/dL (8.8-10.5); CARBON DIOXIDE 18 mmol/L (22-29); CHLORIDE 115 mmol/L (98-107); CREATININE 0.53 mg/dL (0.60-1.30); GLOMERULAR FILTR. RATE CALC > 60 mL/min (>60); PHOSPHORUS 1.8 mg/dL (2.5-4.9); SODIUM SERUM 144 mmol/L (136-145); UREA NITROGEN, BLOOD 7 mg/dL (7-18)
[2016-09-05 07:27] LABS: GLUCOSE COMMENT 1 Received Meds; GLUCOSE,POINT OF CARE 136 MG/DL (70-110)
[2016-09-05 07:27] LABS: GLUCOSE COMMENT 1 Received Meds; GLUCOSE,POINT OF CARE 176 MG/DL (70-110)
[2016-09-05] MEDS: DOCUSATE SODIUM 100 MG CAPSULE PO SCH ×2 (07:51→20:33)
[2016-09-05] MEDS: BISACODYL 10 MG RECTAL RECTAL SUPPOSITORY PR SCH ×2 (07:52→20:33)
[2016-09-05 08:29] VITALS: BP 136/80
[2016-09-05] MEDS: FAT EMULSIONS 20% 100 ML IV SCH (09:50)
[2016-09-05] MEDS ORDERED: SODIUM PHOS,M-BASIC-D-BASIC 30 MMOL in DEXTROSE 5%-WATER 250 ML IV ONE (10:00)
[2016-09-05] MEDS: POTASSIUM CHL 10 MEQ/WATER 50 ML IV SCH ×6 (10:51→23:25)
[2016-09-05 12:00] VITALS: BP 146/78
[2016-09-05 16:00] VITALS: BP 152/78
[2016-09-05] MEDS: CefTRIAXone 1 GM/DEXTROSE 50 ML IV SCH (18:02)
[2016-09-05] MEDS: POTASSIUM CHLORIDE 40 MEQ in SODIUM CHLORIDE 0.9% 1,000 ML IV SCH (18:07)
[2016-09-05 18:11] LABS: GLUCOSE COMMENT 1 Received Meds; GLUCOSE,POINT OF CARE 149 MG/DL (70-110)
[2016-09-05 18:11] LABS: GLUCOSE,POINT OF CARE 136 MG/DL (70-110)
[2016-09-05 18:11] LABS: GLUCOSE COMMENT 1 Received Meds; GLUCOSE,POINT OF CARE 133 MG/DL (70-110)
[2016-09-05 18:34] LABS: ANION GAP 9 mmol/L (8-16); CALCIUM, TOTAL 6.8 mg/dL (8.8-10.5); CARBON DIOXIDE 19 mmol/L (22-29); CHLORIDE 114 mmol/L (98-107); CREATININE 0.45 mg/dL (0.60-1.30); GLOMERULAR FILTR. RATE CALC > 60 mL/min (>60); PHOSPHORUS 3.2 mg/dL (2.5-4.9); SODIUM SERUM 142 mmol/L (136-145); UREA NITROGEN, BLOOD 7 mg/dL (7-18)
[2016-09-05 18:38] LABS: POTASSIUM 2.6 mmol/L (3.5-5.1)
[2016-09-05] MEDS ORDERED: MAGNESIUM SULFATE 1 GM in DEXTROSE 5%-WATER 50 ML IV ONE (19:30)
[2016-09-05 20:00] VITALS: BP 141/74
[2016-09-05] MEDS ORDERED: SODIUM CHLORIDE 0.9% 250 ML IV ONE (20:28)
[2016-09-05 21:33] LABS: OCCULT BLOOD STOOL SINGLE ONLY NEGATIVE (NEGATIVE)
[2016-09-05] MEDS ORDERED: TPN IV SCH ×10 (22:00)
[2016-09-05] MEDS ORDERED: SODIUM ACETATE IV SCH ×10 (22:00)
[2016-09-05] MEDS ORDERED: [UNRECOGNIZED DRUG - OTHER] IV SCH ×10 (22:00)
[2016-09-05] MEDS ORDERED: POTASSIUM PHOS M BASIC D BASIC IV SCH ×10 (22:00)
[2016-09-06] VITALS: BP 133/73
[2016-09-06] MEDS: INSULIN REGULAR, HUMAN 100 UNITS/ML SQ PRN ×5 (00:08→12:05)
[2016-09-06] MEDS: POTASSIUM CHL 10 MEQ/WATER 50 ML IV SCH ×6 (00:20→03:50)
[2016-09-06] MEDS ORDERED: MAGNESIUM SULFATE 1 GM in DEXTROSE 5%-WATER 50 ML IV ONE (00:30)
[2016-09-06 01:51] LABS: GLUCOSE COMMENT 1 Received Meds; GLUCOSE,POINT OF CARE 151 MG/DL (70-110)
[2016-09-06 01:51] LABS: GLUCOSE,POINT OF CARE 129 MG/DL (70-110)
[2016-09-06 01:51] LABS: GLUCOSE,POINT OF CARE 124 MG/DL (70-110)
[2016-09-06] MEDS: MetroNIDAZOLE 500 MG/NACL 100 ML IV SCH ×3 (01:51→19:10)
[2016-09-06 04:00] VITALS: BP 127/68
[2016-09-06 05:57] LABS: BASOPHILS % (AUTO) 0.4 % (0.0-2.0); EOSINOPHILS % (AUTO) 2.2 % (1.0-6.0); HEMATOCRIT 30.3 % (36-46); LYMPHOCYTES # (AUTO) 1.4 K/uL (1.0-4.8); LYMPHOCYTES % (AUTO) 8.9 % (22.0-44.0); MEAN CORPUSCULAR HEMOGLOBIN 30.5 pg (26.0-34.0); MEAN CORPUSCULAR HGB CONC 33.1 G/dL (31.0-37.0); MEAN CORPUSCULAR VOLUME 92 fL (80-100); MONOCYTES # (AUTO) 0.7 K/uL (0.1-1.0); MONOCYTES % (AUTO) 4.4 % (2.0-9.0); NEUTROPHILS # (AUTO) 13.5 K/uL (1.8-7.7); NEUTROPHILS % (AUTO) 84.1 % (40.0-70.0); PLATELET COUNT (AUTO) 120 K/uL (150-450); RED BLOOD CELL COUNT(AUTO) 3.28 MIL/uL (4.00-5.20)
[2016-09-06 06:16] LABS: ALANINE AMINOTRANSFERASE 23 U/L (12-78); ALBUMIN 1.5 g/dL (3.4-5.0); ANION GAP 9 mmol/L (8-16); ASPARTATE AMINOTRANSFERASE 39 U/L (15-37); BILIRUBIN,TOTAL 0.2 mg/dL (0.1-1.0); CALCIUM, TOTAL 6.9 mg/dL (8.8-10.5); CARBON DIOXIDE 20 mmol/L (22-29); CHLORIDE 115 mmol/L (98-107); CREATININE 0.39 mg/dL (0.60-1.30); GLOMERULAR FILTR. RATE CALC > 60 mL/min (>60); PHOSPHORUS 2.4 mg/dL (2.5-4.9); POTASSIUM 3.6 mmol/L (3.5-5.1); SODIUM SERUM 144 mmol/L (136-145); TOTAL PROTEIN, SERUM 4.1 g/dL (6.4-8.2); UREA NITROGEN, BLOOD 9 mg/dL (7-18)
[2016-09-06 07:57] LABS: GLUCOSE COMMENT 1 Received Meds; GLUCOSE,POINT OF CARE 134 MG/DL (70-110)
[2016-09-06 08:00] VITALS: BP 119/75
[2016-09-06] MEDS ORDERED: POTASSIUM CHLORIDE 40 MEQ in SODIUM CHLORIDE 0.9% 1,000 ML IV SCH ×2 (08:00→22:00)
[2016-09-06] MEDS ORDERED: VANCOMYCIN HCL 1 GM/D5% WATER 200 ML IV SCH (08:00)
[2016-09-06 10:19] LABS: INR 1.3 (0.9-1.1); PROTHROMBIN TIME 13.8 SEC (9.4-11.6)
[2016-09-06 11:27] LABS: GLUCOSE,POINT OF CARE 135 MG/DL (70-110)
[2016-09-06] MEDS: PANTOPRAZOLE SODIUM 80 MG in SODIUM CHLORIDE 0.9% 500 ML IV SCH ×2 (11:29→21:17)
[2016-09-06 12:00] VITALS: BP 114/65
[2016-09-06] MEDS: FAT EMULSIONS 20% 100 ML IV SCH (12:30)
[2016-09-06 16:00] VITALS: BP 123/62
[2016-09-06 17:02] LABS: GLUCOSE,POINT OF CARE 150 MG/DL (70-110)
[2016-09-06 17:02] LABS: GLUCOSE,POINT OF CARE 143 MG/DL (70-110)
[2016-09-06] MEDS ORDERED: SODIUM CHLORIDE 0.9% 1,000 ML IV ONE ×2 (17:35→19:29)
[2016-09-06] MEDS: CefTRIAXone 1 GM/DEXTROSE 50 ML IV SCH (18:23)
[2016-09-06 20:00] VITALS: BP 145/74
[2016-09-06 20:19] LABS: OVA AND PARASITES EXAM Final report
[2016-09-06] MEDS ORDERED: SODIUM CHLORIDE 0.9% 250 ML IV ONE (20:57)
[2016-09-06] MEDS: DOCUSATE SODIUM 100 MG CAPSULE PO SCH (21:00)
[2016-09-06] MEDS: BISACODYL 10 MG RECTAL RECTAL SUPPOSITORY PR SCH (21:00)
[2016-09-06] MEDS ORDERED: TPN IV SCH ×10 (22:00)
[2016-09-06] MEDS ORDERED: POTASSIUM PHOS M BASIC D BASIC IV SCH ×10 (22:00)
[2016-09-06] MEDS ORDERED: SODIUM ACETATE IV SCH ×10 (22:00)
[2016-09-06] MEDS ORDERED: [UNRECOGNIZED DRUG - OTHER] IV SCH ×10 (22:00)
[2016-09-07] VITALS: BP 137/78
[2016-09-07] MEDS: INSULIN REGULAR, HUMAN 100 UNITS/ML SQ PRN ×5 (00:49→21:15)
[2016-09-07] MEDS: MetroNIDAZOLE 500 MG/NACL 100 ML IV SCH ×3 (00:52→17:50)
[2016-09-07 02:32] LABS: GLUCOSE COMMENT 1 Received Meds; GLUCOSE,POINT OF CARE 141 MG/DL (70-110)
[2016-09-07 04:00] VITALS: BP 141/80
[2016-09-07 04:32] LABS: GLUCOSE,POINT OF CARE 133 MG/DL (70-110)
[2016-09-07 05:24] LABS: BASOPHILS % (AUTO) 0.1 % (0.0-2.0); EOSINOPHILS % (AUTO) 1.4 % (1.0-6.0); HEMOGLOBIN 9.8 g/dL (12.0-16.0); LYMPHOCYTES # (AUTO) 1.5 K/uL (1.0-4.8); LYMPHOCYTES % (AUTO) 7.2 % (22.0-44.0); MEAN CORPUSCULAR HGB CONC 31.5 G/dL (31.0-37.0); MEAN CORPUSCULAR VOLUME 92 fL (80-100); MONOCYTES # (AUTO) 0.7 K/uL (0.1-1.0); MONOCYTES % (AUTO) 3.4 % (2.0-9.0); NEUTROPHILS # (AUTO) 18.8 K/uL (1.8-7.7); PLATELET COUNT (AUTO) 165 K/uL (150-450); RED BLOOD CELL COUNT(AUTO) 3.37 MIL/uL (4.00-5.20); RED CELL DISTRIBUTION WIDTH 13.9 % (11.5-14.5); WHITE BLOOD COUNT (AUTO) 21.4 K/uL (4.5-11.0)
[2016-09-07 05:59] LABS: ALANINE AMINOTRANSFERASE 18 U/L (12-78); ALBUMIN 1.5 g/dL (3.4-5.0); ANION GAP 9 mmol/L (8-16); ASPARTATE AMINOTRANSFERASE 33 U/L (15-37); BILIRUBIN,TOTAL 0.2 mg/dL (0.1-1.0); CALCIUM, TOTAL 7.1 mg/dL (8.8-10.5); CARBON DIOXIDE 22 mmol/L (22-29); CHLORIDE 114 mmol/L (98-107); CREATININE 0.37 mg/dL (0.60-1.30); GLOMERULAR FILTR. RATE CALC > 60 mL/min (>60); PHOSPHORUS 2.7 mg/dL (2.5-4.9); POTASSIUM 3.1 mmol/L (3.5-5.1); SODIUM SERUM 145 mmol/L (136-145); TOTAL PROTEIN, SERUM 4.2 g/dL (6.4-8.2); UREA NITROGEN, BLOOD 11 mg/dL (7-18)
[2016-09-07 06:33] LABS: NEUTROPHILS % (AUTO) 87.9 % (40.0-70.0)
[2016-09-07] MEDS: POTASSIUM CHL 10 MEQ/WATER 50 ML IV SCH ×6 (06:42→14:23)
[2016-09-07 06:57] LABS: GLUCOSE,POINT OF CARE 110 MG/DL (70-110)
[2016-09-07 08:00] VITALS: BP 118/63
[2016-09-07] MEDS ORDERED: MAGNESIUM SULFATE 4 GM/WATER 100 ML IV ONE (08:30)
[2016-09-07] MEDS: PANTOPRAZOLE SODIUM 80 MG in SODIUM CHLORIDE 0.9% 500 ML IV SCH ×2 (08:34→17:30)
[2016-09-07] MEDS: BISACODYL 10 MG RECTAL RECTAL SUPPOSITORY PR SCH ×2 (09:00→20:53)
[2016-09-07] MEDS: DOCUSATE SODIUM 100 MG CAPSULE PO SCH ×2 (09:00→20:53)
[2016-09-07] MEDS: FAT EMULSIONS 20% 100 ML IV SCH (10:26)
[2016-09-07 11:52] LABS: GLUCOSE,POINT OF CARE 125 MG/DL (70-110)
[2016-09-07 12:00] VITALS: BP 133/78
[2016-09-07 16:00] VITALS: BP 120/73
[2016-09-07] MEDS ORDERED: SODIUM CHLORIDE 0.9% 250 ML IV ONE ×2 (16:55)
[2016-09-07] MEDS: CefTRIAXone 1 GM/DEXTROSE 50 ML IV SCH (17:50)
[2016-09-07 20:00] VITALS: BP 131/70
[2016-09-07 21:16] LABS: GLUCOSE COMMENT 1 Received Meds; GLUCOSE,POINT OF CARE 168 MG/DL (70-110)
[2016-09-07 21:16] LABS: GLUCOSE,POINT OF CARE 103 MG/DL (70-110)
[2016-09-07] MEDS: [UNRECOGNIZED DRUG - OTHER] IV SCH ×10 (22:09)
[2016-09-07] MEDS: TPN IV SCH ×10 (22:09)
[2016-09-07] MEDS: SODIUM ACETATE IV SCH ×10 (22:09)
[2016-09-07] MEDS: POTASSIUM PHOS M BASIC D BASIC IV SCH ×10 (22:09)
[2016-09-08] VITALS: BP 153/59
[2016-09-08] MEDS: INSULIN REGULAR, HUMAN 100 UNITS/ML SQ PRN ×6 (00:45→20:56)
[2016-09-08] MEDS: MetroNIDAZOLE 500 MG/NACL 100 ML IV SCH ×3 (01:45→18:18)
[2016-09-08] MEDS: PANTOPRAZOLE SODIUM 80 MG in SODIUM CHLORIDE 0.9% 500 ML IV SCH (02:58)
[2016-09-08 04:00] VITALS: BP 139/75
[2016-09-08 04:32] LABS: GLUCOSE,POINT OF CARE 132 MG/DL (70-110)
[2016-09-08 04:32] LABS: GLUCOSE COMMENT 1 Received Meds; GLUCOSE,POINT OF CARE 139 MG/DL (70-110)
[2016-09-08 06:22] LABS: ALANINE AMINOTRANSFERASE 12 U/L (12-78); ALBUMIN 1.2 g/dL (3.4-5.0); ANION GAP 7 mmol/L (8-16); ASPARTATE AMINOTRANSFERASE 30 U/L (15-37); BILIRUBIN,TOTAL 0.2 mg/dL (0.1-1.0); CALCIUM, TOTAL 7.2 mg/dL (8.8-10.5); CARBON DIOXIDE 23 mmol/L (22-29); CHLORIDE 114 mmol/L (98-107); GLOMERULAR FILTR. RATE CALC > 60 mL/min (>60); PHOSPHORUS 2.9 mg/dL (2.5-4.9); POTASSIUM 3.2 mmol/L (3.5-5.1); SODIUM SERUM 144 mmol/L (136-145); TOTAL PROTEIN, SERUM 3.7 g/dL (6.4-8.2); UREA NITROGEN, BLOOD 14 mg/dL (7-18)
[2016-09-08 06:39] LABS: BASOPHILS # (AUTO) 0.01 K/uL (0.00-0.20); BASOPHILS % (AUTO) 0.1 % (0.0-2.0); EOSINOPHILS # (AUTO) 0.24 K/uL (0.00-0.70); EOSINOPHILS % (AUTO) 1.69 % (1.0-6.0); HEMATOCRIT 25.1 % (36-46); HEMOGLOBIN 8.5 g/dL (12.0-16.0); LYMPHOCYTES # (AUTO) 1.2 K/uL (1.0-4.8); LYMPHOCYTES % (AUTO) 8.5 % (22.0-44.0); MEAN CORPUSCULAR HEMOGLOBIN 30.6 pg (26.0-34.0); MEAN CORPUSCULAR HGB CONC 33.7 G/dL (31.0-37.0); MEAN CORPUSCULAR VOLUME 91 fL (80-100); MONOCYTES # (AUTO) 0.6 K/uL (0.1-1.0); NEUTROPHILS # (AUTO) 12.4 K/uL (1.8-7.7); PLATELET COUNT (AUTO) 171 K/uL (150-450); RED BLOOD CELL COUNT(AUTO) 2.76 MIL/uL (4.00-5.20); RED CELL DISTRIBUTION WIDTH 13.8 % (11.5-14.5); WHITE BLOOD COUNT (AUTO) 14.4 K/uL (4.5-11.0)
[2016-09-08 06:42] LABS: NEUTROPHILS % (AUTO) 85.8 % (40.0-70.0)
[2016-09-08 08:00] VITALS: BP 130/85
[2016-09-08] MEDS ORDERED: MAGNESIUM SULFATE 3 GM in DEXTROSE 5%-WATER 100 ML IV ONE (08:15)
[2016-09-08] MEDS: POTASSIUM CHL 10 MEQ/WATER 50 ML IV SCH ×4 (08:17→11:15)
[2016-09-08 08:37] LABS: GLUCOSE COMMENT 1 Received Meds; GLUCOSE,POINT OF CARE 156 MG/DL (70-110)
[2016-09-08 08:37] LABS: GLUCOSE COMMENT 1 Received Meds; GLUCOSE,POINT OF CARE 149 MG/DL (70-110)
[2016-09-08] MEDS: PANTOPRAZOLE SODIUM 40 MG/VIAL IVP SCH ×2 (08:55→20:27)
[2016-09-08] MEDS: BISACODYL 10 MG RECTAL RECTAL SUPPOSITORY PR SCH ×2 (08:55→20:24)
[2016-09-08] MEDS: DOCUSATE SODIUM 100 MG CAPSULE PO SCH ×2 (08:55→20:24)
[2016-09-08] MEDS: ALBUMIN HUMAN 25%-25GM/100ML 100 ML IV SCH ×2 (09:37→17:03)
[2016-09-08] MEDS: FAT EMULSIONS 20% 100 ML IV SCH (09:43)
[2016-09-08 12:00] VITALS: BP 130/85
[2016-09-08 12:57] LABS: GLUCOSE COMMENT 1 Received Meds; GLUCOSE,POINT OF CARE 156 MG/DL (70-110)
[2016-09-08 16:00] VITALS: BP 146/74
[2016-09-08] MEDS: CefTRIAXone 1 GM/DEXTROSE 50 ML IV SCH (18:17)
[2016-09-08 20:00] VITALS: BP 154/76
[2016-09-08] MEDS: POTASSIUM PHOS M BASIC D BASIC IV SCH ×10 (22:08)
[2016-09-08] MEDS: SODIUM ACETATE IV SCH ×10 (22:08)
[2016-09-08] MEDS: [UNRECOGNIZED DRUG - OTHER] IV SCH ×10 (22:08)
[2016-09-08] MEDS: TPN IV SCH ×10 (22:08)
[2016-09-09] VITALS (8 sets, daily range): BP systolic 139–163; BP diastolic 68–82
[2016-09-09] MEDS: INSULIN REGULAR, HUMAN 100 UNITS/ML SQ PRN ×7 (00:31→23:48)
[2016-09-09] MEDS: ALBUMIN HUMAN 25%-25GM/100ML 100 ML IV SCH ×3 (00:32→16:06)
[2016-09-09 00:57] LABS: GLUCOSE COMMENT 1 Received Meds; GLUCOSE,POINT OF CARE 163 MG/DL (70-110)
[2016-09-09 00:57] LABS: GLUCOSE COMMENT 1 Received Meds; GLUCOSE,POINT OF CARE 135 MG/DL (70-110)
[2016-09-09 00:57] LABS: GLUCOSE COMMENT 1 Received Meds; GLUCOSE,POINT OF CARE 132 MG/DL (70-110)
[2016-09-09] MEDS: LABETALOL HCL 5 MG/ML 20 ML VIAL IVP PRN (01:34)
[2016-09-09] MEDS: MetroNIDAZOLE 500 MG/NACL 100 ML IV SCH ×3 (01:34→18:26)
[2016-09-09 05:57] LABS: BASOPHILS # (AUTO) 0.02 K/uL (0.00-0.20); BASOPHILS % (AUTO) 0.1 % (0.0-2.0); EOSINOPHILS # (AUTO) 0.16 K/uL (0.00-0.70); EOSINOPHILS % (AUTO) 1.31 % (1.0-6.0); HEMATOCRIT 22.3 % (36-46); HEMOGLOBIN 7.7 g/dL (12.0-16.0); LYMPHOCYTES # (AUTO) 1.2 K/uL (1.0-4.8); LYMPHOCYTES % (AUTO) 9.7 % (22.0-44.0); MEAN CORPUSCULAR HEMOGLOBIN 31.3 pg (26.0-34.0); MEAN CORPUSCULAR HGB CONC 34.3 G/dL (31.0-37.0); MEAN CORPUSCULAR VOLUME 91 fL (80-100); MONOCYTES # (AUTO) 0.6 K/uL (0.1-1.0); MONOCYTES % (AUTO) 4.6 % (2.0-9.0); NEUTROPHILS % (AUTO) 84.2 % (40.0-70.0); PLATELET COUNT (AUTO) 155 K/uL (150-450); RED BLOOD CELL COUNT(AUTO) 2.45 MIL/uL (4.00-5.20); RED CELL DISTRIBUTION WIDTH 14.2 % (11.5-14.5); WHITE BLOOD COUNT (AUTO) 11.9 K/uL (4.5-11.0)
[2016-09-09 06:39] LABS: ALANINE AMINOTRANSFERASE 12 U/L (12-78); ALBUMIN 2.4 g/dL (3.4-5.0); ANION GAP 9 mmol/L (8-16); ASPARTATE AMINOTRANSFERASE 27 U/L (15-37); BILIRUBIN,TOTAL 0.3 mg/dL (0.1-1.0); CALCIUM, TOTAL 7.8 mg/dL (8.8-10.5); CARBON DIOXIDE 24 mmol/L (22-29); CHLORIDE 111 mmol/L (98-107); CREATININE 0.39 mg/dL (0.60-1.30); GLOMERULAR FILTR. RATE CALC > 60 mL/min (>60); PHOSPHORUS 3.2 mg/dL (2.5-4.9); POTASSIUM 3.4 mmol/L (3.5-5.1); SODIUM SERUM 144 mmol/L (136-145); TOTAL PROTEIN, SERUM 4.6 g/dL (6.4-8.2); UREA NITROGEN, BLOOD 13 mg/dL (7-18)
[2016-09-09 07:02] LABS: GLUCOSE COMMENT 1 Received Meds; GLUCOSE,POINT OF CARE 145 MG/DL (70-110)
[2016-09-09] MEDS: DOCUSATE SODIUM 100 MG CAPSULE PO SCH ×2 (08:22→20:04)
[2016-09-09] MEDS: BISACODYL 10 MG RECTAL RECTAL SUPPOSITORY PR SCH ×2 (08:22→19:47)
[2016-09-09] MEDS: HydrALAZINE HCL 20 MG/ML VIAL IVP PRN ×2 (08:24→16:06)
[2016-09-09] MEDS: PANTOPRAZOLE SODIUM 40 MG/VIAL IVP SCH ×2 (08:24→20:05)
[2016-09-09] MEDS: MORPHINE SULFATE 2 MG/ML SYRINGE IVP PRN ×2 (08:24→18:26)
[2016-09-09] MEDS ORDERED: POTASSIUM CHLORIDE 20 MEQ ER TABLET PO ONE (09:45)
[2016-09-09] MEDS ORDERED: MAGNESIUM SULFATE 1 GM in DEXTROSE 5%-WATER 50 ML IV ONE (10:00)
[2016-09-09] MEDS: FAT EMULSIONS 20% 100 ML IV SCH (10:30)
[2016-09-09 11:07] LABS: INR 1.2 (0.9-1.1); PROTHROMBIN TIME 13.1 SEC (9.4-11.6)
[2016-09-09] MEDS ORDERED: SODIUM CHLORIDE 0.9% 100 ML ONE (14:59)
[2016-09-09] MEDS: CefTRIAXone 1 GM/DEXTROSE 50 ML IV SCH (17:06)
[2016-09-09] MEDS: POTASSIUM PHOS M BASIC D BASIC IV SCH ×10 (22:11)
[2016-09-09] MEDS: TPN IV SCH ×10 (22:11)
[2016-09-09] MEDS: SODIUM ACETATE IV SCH ×10 (22:11)
[2016-09-09] MEDS: [UNRECOGNIZED DRUG - OTHER] IV SCH ×10 (22:11)
[2016-09-10] VITALS: BP 147/58
[2016-09-10] MEDS: ALBUMIN HUMAN 25%-25GM/100ML 100 ML IV SCH ×3 (00:42→16:13)
[2016-09-10 04:00] VITALS: BP 163/76
[2016-09-10 04:42] LABS: GLUCOSE,POINT OF CARE 137 MG/DL (70-110)
[2016-09-10 04:43] LABS: GLUCOSE COMMENT 1 Received Meds; GLUCOSE,POINT OF CARE 139 MG/DL (70-110)
[2016-09-10 04:43] LABS: GLUCOSE COMMENT 1 Received Meds; GLUCOSE,POINT OF CARE 141 MG/DL (70-110)
[2016-09-10] MEDS: INSULIN REGULAR, HUMAN 100 UNITS/ML SQ PRN ×5 (05:44→20:55)
[2016-09-10 05:45] LABS: ANION GAP 9 mmol/L (8-16); CALCIUM, TOTAL 8.1 mg/dL (8.8-10.5); CARBON DIOXIDE 26 mmol/L (22-29); CHLORIDE 109 mmol/L (98-107); CREATININE 0.36 mg/dL (0.60-1.30); GLOMERULAR FILTR. RATE CALC > 60 mL/min (>60); PHOSPHORUS 3.4 mg/dL (2.5-4.9); POTASSIUM 3.4 mmol/L (3.5-5.1); SODIUM SERUM 144 mmol/L (136-145); UREA NITROGEN, BLOOD 12 mg/dL (7-18)
[2016-09-10 07:27] LABS: GLUCOSE,POINT OF CARE 151 MG/DL (70-110)
[2016-09-10 07:27] LABS: GLUCOSE COMMENT 1 Received Meds; GLUCOSE,POINT OF CARE 161 MG/DL (70-110)
[2016-09-10 07:27] LABS: GLUCOSE,POINT OF CARE 162 MG/DL (70-110)
[2016-09-10] MEDS ORDERED: POTASSIUM CHLORIDE 10% 40 MEQ/30 ML LIQUID UDCUP NG ONE (07:30)
[2016-09-10] MEDS ORDERED: MAGNESIUM SULFATE 2 GM in DEXTROSE 5%-WATER 50 ML IV ONE (07:30)
[2016-09-10 08:00] VITALS: BP 128/64
[2016-09-10] MEDS: DOCUSATE SODIUM 100 MG CAPSULE PO SCH ×2 (08:41→20:37)
[2016-09-10] MEDS: PANTOPRAZOLE SODIUM 40 MG/VIAL IVP SCH ×2 (08:41→20:53)
[2016-09-10] MEDS: BISACODYL 10 MG RECTAL RECTAL SUPPOSITORY PR SCH ×2 (08:45→20:38)
[2016-09-10] MEDS ORDERED: FUROSEMIDE 20 MG/2 ML VIAL IVP ONE (10:00)
[2016-09-10] MEDS: FAT EMULSIONS 20% 100 ML IV SCH (10:15)
[2016-09-10 12:00] VITALS: BP 164/78
[2016-09-10] MEDS: LABETALOL HCL 5 MG/ML 20 ML VIAL IVP PRN ×2 (13:29→21:09)
[2016-09-10 13:36] LABS: GLUCOSE COMMENT 1 Received Meds; GLUCOSE,POINT OF CARE 135 MG/DL (70-110)
[2016-09-10 13:36] LABS: GLUCOSE COMMENT 1 Received Meds; GLUCOSE,POINT OF CARE 144 MG/DL (70-110)
[2016-09-10 16:32] VITALS: BP 152/78
[2016-09-10] MEDS: CefTRIAXone 1 GM/DEXTROSE 50 ML IV SCH (17:12)
[2016-09-10 20:00] VITALS: BP 159/76
[2016-09-10] MEDS: [UNRECOGNIZED DRUG - OTHER] IV SCH ×10 (22:26)
[2016-09-10] MEDS: SODIUM ACETATE IV SCH ×10 (22:26)
[2016-09-10] MEDS: POTASSIUM PHOS M BASIC D BASIC IV SCH ×10 (22:26)
[2016-09-10] MEDS: TPN IV SCH ×10 (22:26)
[2016-09-10] MEDS: MORPHINE SULFATE 2 MG/ML SYRINGE IVP PRN (23:49)
[2016-09-11] VITALS (8 sets, daily range): BP systolic 140–164; BP diastolic 59–97
[2016-09-11] MEDS: LABETALOL HCL 5 MG/ML 20 ML VIAL IVP PRN (00:08)
[2016-09-11] MEDS: ALBUMIN HUMAN 25%-25GM/100ML 100 ML IV SCH ×2 (00:18→09:11)
[2016-09-11] MEDS: INSULIN REGULAR, HUMAN 100 UNITS/ML SQ PRN ×3 (00:19→12:46)
[2016-09-11 01:16] LABS: GLUCOSE,POINT OF CARE 131 MG/DL (70-110)
[2016-09-11 01:16] LABS: GLUCOSE COMMENT 1 Received Meds; GLUCOSE,POINT OF CARE 136 MG/DL (70-110)
[2016-09-11 01:16] LABS: GLUCOSE COMMENT 1 Received Meds; GLUCOSE,POINT OF CARE 139 MG/DL (70-110)
[2016-09-11 06:58] LABS: BASOPHILS % (AUTO) 0.4 % (0.0-2.0); EOSINOPHILS % (AUTO) 1.4 % (1.0-6.0); HEMATOCRIT 22.9 % (36-46); HEMOGLOBIN 7.6 g/dL (12.0-16.0); LYMPHOCYTES # (AUTO) 1.1 K/uL (1.0-4.8); LYMPHOCYTES % (AUTO) 12.6 % (22.0-44.0); MEAN CORPUSCULAR HEMOGLOBIN 30.5 pg (26.0-34.0); MEAN CORPUSCULAR HGB CONC 33.1 G/dL (31.0-37.0); MEAN CORPUSCULAR VOLUME 92 fL (80-100); MONOCYTES # (AUTO) 0.5 K/uL (0.1-1.0); MONOCYTES % (AUTO) 6.2 % (2.0-9.0); NEUTROPHILS # (AUTO) 6.8 K/uL (1.8-7.7); NEUTROPHILS % (AUTO) 79.4 % (40.0-70.0); PLATELET COUNT (AUTO) 166 K/uL (150-450); RED BLOOD CELL COUNT(AUTO) 2.48 MIL/uL (4.00-5.20); RED CELL DISTRIBUTION WIDTH 13.8 % (11.5-14.5); WHITE BLOOD COUNT (AUTO) 8.6 K/uL (4.5-11.0)
[2016-09-11 07:13] LABS: ALANINE AMINOTRANSFERASE 10 U/L (12-78); ALBUMIN 3.2 g/dL (3.4-5.0); ANION GAP 8 mmol/L (8-16); ASPARTATE AMINOTRANSFERASE 28 U/L (15-37); BILIRUBIN,TOTAL 0.3 mg/dL (0.1-1.0); CALCIUM, TOTAL 8.3 mg/dL (8.8-10.5); CARBON DIOXIDE 27 mmol/L (22-29); CHLORIDE 108 mmol/L (98-107); CREATININE 0.41 mg/dL (0.60-1.30); GLOMERULAR FILTR. RATE CALC > 60 mL/min (>60); POTASSIUM 3.6 mmol/L (3.5-5.1); SODIUM SERUM 143 mmol/L (136-145); TOTAL PROTEIN, SERUM 5.2 g/dL (6.4-8.2); UREA NITROGEN, BLOOD 12 mg/dL (7-18)
[2016-09-11] MEDS: BISACODYL 10 MG RECTAL RECTAL SUPPOSITORY PR SCH ×2 (09:00→22:00)
[2016-09-11] MEDS: DOCUSATE SODIUM 100 MG CAPSULE PO SCH ×2 (09:00→21:00)
[2016-09-11] MEDS: PANTOPRAZOLE SODIUM 40 MG/VIAL IVP SCH ×2 (09:11→22:00)
[2016-09-11] MEDS: MORPHINE SULFATE 2 MG/ML SYRINGE IVP PRN (09:11)
[2016-09-11] MEDS: FAT EMULSIONS 20% 100 ML IV SCH (10:56)
[2016-09-11 13:27] LABS: GLUCOSE COMMENT 1 Received Meds; GLUCOSE,POINT OF CARE 159 MG/DL (70-110)
[2016-09-11 13:27] LABS: GLUCOSE,POINT OF CARE 123 MG/DL (70-110)
[2016-09-11 13:27] LABS: GLUCOSE COMMENT 1 Received Meds; GLUCOSE,POINT OF CARE 153 MG/DL (70-110)
[2016-09-11] MEDS ORDERED: DiphenhydrAMINE HCL 50 MG/ML VIAL IVP PRN (16:00)
[2016-09-11] MEDS ORDERED: ONDANSETRON HCL 4 MG/2 ML VIAL IVP PRN (16:00)
[2016-09-11] MEDS: MORPHINE SULFATE 100 MG/NS/PF 100 ML IV PRN (16:14)
[2016-09-12 04:51] VITALS: BP 128/69
[2016-09-12 07:55] VITALS: BP 141/77
[2016-09-12] MEDS: DOCUSATE SODIUM 100 MG CAPSULE PO SCH ×2 (07:56→20:29)
[2016-09-12] MEDS: BISACODYL 10 MG RECTAL RECTAL SUPPOSITORY PR SCH ×2 (07:57→20:29)
[2016-09-12] MEDS: PANTOPRAZOLE SODIUM 40 MG/VIAL IVP SCH ×2 (07:57→20:29)
[2016-09-12 11:43] VITALS: BP 136/77
[2016-09-12 15:22] VITALS: BP 157/94
[2016-09-12] MEDS: MORPHINE SULFATE 100 MG/NS/PF 100 ML IV PRN (16:05)
[2016-09-12 19:12] VITALS: BP 142/75
[2016-09-12 23:01] VITALS: BP 146/75
[2016-09-13 04:43] VITALS: BP 126/73
[2016-09-13 07:35] VITALS: BP 154/68
[2016-09-13] MEDS: PANTOPRAZOLE SODIUM 40 MG/VIAL IVP SCH (07:46)
[2016-09-13] MEDS: BISACODYL 10 MG RECTAL RECTAL SUPPOSITORY PR SCH (07:47)
[2016-09-13 11:02] VITALS: BP 155/84
[2016-09-13 15:45] VITALS: BP 145/65
[2016-09-13 20:06] VITALS: BP 152/76
== END 2016-09-13 21:40 | disposition expired | DRG 710 ==
LOC: EMS 13:21 → EEVIPCON 13:21 → ICU 15:59 → 6N 09-11 18:55
PROVIDERS: ADMIT Internal Medicine; ATTEND Internal Medicine
PROC: 0BH17EZ Insertion of Endotracheal Airway into Trachea, Via Natural or Artificial Opening (ICD-10-PCS; principal; 2016-08-29)
PROC: 0DH67UZ Insertion of Feeding Device into Stomach, Via Natural or Artificial Opening (ICD-10-PCS; 2016-08-29)
PROC: 5A12012 Performance of Cardiac Output, Single, Manual (ICD-10-PCS; 2016-08-29)
PROC: 5A1955Z Respiratory Ventilation, Greater than 96 Consecutive Hours (ICD-10-PCS; 2016-08-29)
PROC: 02HV33Z Insertion of Infusion Device into Superior Vena Cava, Percutaneous Approach (ICD-10-PCS; 2016-08-29)
PROC: 30233K1 Transfusion of Nonautologous Frozen Plasma into Peripheral Vein, Percutaneous Approach (ICD-10-PCS; 2016-08-29)
PROC: 0DJD8ZZ Inspection of Lower Intestinal Tract, Via Natural or Artificial Opening Endoscopic (ICD-10-PCS; 2016-08-30)
DX: A41.9 Sepsis, unspecified organism (principal); I46.9 Cardiac arrest, cause unspecified; J96.01 Acute respiratory failure with hypoxia; J69.0 Pneumonitis due to inhalation of food and vomit; G93.1 Anoxic brain damage, not elsewhere classified; E43 Unspecified severe protein-calorie malnutrition; E87.2 Acidosis; R34 Anuria and oliguria; K56.0 Paralytic ileus; J44.9 Chronic obstructive pulmonary disease, unspecified; K92.2 Gastrointestinal hemorrhage, unspecified; E83.39 Other disorders of phosphorus metabolism; E11.9 Type 2 diabetes mellitus without complications; E87.6 Hypokalemia; F31.9 Bipolar disorder, unspecified; I10 Essential (primary) hypertension; J45.909 Unspecified asthma, uncomplicated; Z66 Do not resuscitate; Z51.5 Encounter for palliative care; K74.60 Unspecified cirrhosis of liver; K21.9 Gastro-esophageal reflux disease without esophagitis; F20.9 Schizophrenia, unspecified; B95.61 Methicillin susceptible Staphylococcus aureus infection as the cause of diseases classified elsewhere; D64.9 Anemia, unspecified; G43.909 Migraine, unspecified, not intractable, without status migrainosus; R74.0 Nonspecific elevation of levels of transaminase and lactic acid dehydrogenase [LDH]; E83.42 Hypomagnesemia; E88.09 Other disorders of plasma-protein metabolism, not elsewhere classified; I08.1 Rheumatic disorders of both mitral and tricuspid valves; B96.20 Unspecified Escherichia coli [E. coli] as the cause of diseases classified elsewhere; Z88.0 Allergy status to penicillin; Z88.8 Allergy status to other drugs, medicaments and biological substances; Z68.25 Body mass index [BMI] 25.0-25.9, adult; Z79.84 Long term (current) use of oral hypoglycemic drugs; Z79.51 Long term (current) use of inhaled steroids; Z79.899 Other long term (current) drug therapy
CPT/HCPCS: 31500; 51702; 70470; 70551; 71250; 72192; 74000; 74150; 76770; 82270; 82271; 82570; 82805; 82962; 83036; 83605; 83615; 83735; 84100; 84132; 84134; 84300; 84478; 84540; 86900; 86901; 86927; 87040; 87045; 87070; 87081; 87086; 87106; 87177; 87205; 87324; 87449; 93005; 93306; 94002; 94003; 94640; 95816; 96365; 96368; 96375; 99291; C9113; J0131; J0360; J0610; J0696; J0712; J1815; J1940; J2060; J2270; J2354; J2704; J3260; J3370; J3475; J3480; J3490; J7030; J7040; J7050; J7060; J7070; P9017; P9046